=== PATIENT | female | born 1975 | race Caucasian/White ===

== ENCOUNTER → 2019-05-16 | Outpatient (CLI) | payer OTHER | LOC: COL.PUL 05-06 13:30 | DX: R06.00 Dyspnea, unspecified (principal) ==

== ENCOUNTER → 2019-05-21 | Outpatient (CLI) | payer OTHER | LOC: COL.PUL 09:00 | DX: R06.00 Dyspnea, unspecified (principal); Z87.891 Personal history of nicotine dependence ==